=== PATIENT | female | born 1955 | race Caucasian/White ===

== ENCOUNTER 2017-01-28 09:20 | Emergency (ER) | payer MEDICAID ==
[2017-01-28 09:47] VITALS: BP 137/87
[2017-01-28] MEDS ORDERED: Lidocaine 1% MPF* 2 ML VIAL INJ ONE (10:07)
--- NOTE | 2017-01-28 10:59 | UC ---
Skin Complaint HPI - HPI Summary HPI Summary: Patient presents to the with CC of tick to the right inner thigh since . She states she was waiting for the tick to engorge so she could pull it out, but it embedded deeper. She is requesting a removal of the tick at this time. There is a erythematous area around the tick, but does not have an EM appearing rash. She denies previous hx of lyme disease and has never had a tick bite. She denies any symptoms including arthralgia, [place], body aches or any neuro symptoms. Denies fevers, sweats or chills. - History of Current Complaint Chief Complaint: UCSkin Time Seen by Provider: 01/28/17 10:04 Stated Complaint: TICK BITE Hx Obtained From: Patient ?: No Onset/Duration: Sudden Onset Skin Exposure Onset/Duration: Minutes Ago, Days Ago Timing: Constant Onset Severity: Moderate Current Severity: Moderate Pain Intensity: 4 Pain Scale Used: 0-10 Numeric Location: Discrete - right inner thigh Character: Swelling, Redness, Painful Aggravating Factor(s): Nothing Alleviating Factor(s): Nothing Associated Signs & Symptoms: Positive: Tenderness Related History: Possible Reaction to: Insect - Allergy/Home Medications Allergies/Adverse Reactions: Allergies Allergy/AdvReac Type Severity Reaction Status Date / Time No Known Allergies Allergy Verified 01/28/17 09:43 Review of Systems Constitutional: Negative Skin: Rash - right inner thigh Eyes: Negative Cardiovascular: Negative Gastrointestinal: Negative Genitourinary: Negative Motor: Negative Neurovascular: Negative Neurological: Negative Psychological: Negative Is Patient Immunocompromised?: No All Other Systems Reviewed And Are Negative: Yes PMH/Surg Hx/FS Hx/Imm Hx Previously Healthy: Yes Other History Of: Negative For: Anticoagulant Therapy - Surgical History Surgical History: Yes Surgery Procedure, Year, and Place: skin grafts placed on her abdomen from her legs and her back. choley - Family History Known Family History: Positive: Cardiac Disease - Social History Occupation: Employed Part-time Lives: With Family Alcohol Use: None Substance Use Type: None Substance Use Comment - Amount & Last Used: hx of heroin use Smoking Status (MU): Former Smoker - Immunization History Most Recent Tetanus Shot: Unknown Physical Exam Triage Information Reviewed: Yes Appearance: Well-Appearing, Well-Nourished Vital Signs: Initial Vital Signs Temp 98 F 01/28/17 09:43 Pulse 66 01/28/17 09:43 Resp 16 01/28/17 09:43 BP 137/87 01/28/17 09:43 Pulse Ox 98 01/28/17 09:43 Vital Signs Reviewed: Yes Eye Exam: Normal Eyes: Positive: Conjunctiva Clear Neck exam: Normal Neck: Positive: Supple, No Lymphadenopathy Respiratory Exam: Normal Respiratory: Positive: Chest non-tender Cardiovascular Exam: Normal Cardiovascular: Positive: RRR Musculoskeletal Exam: Normal Musculoskeletal: Positive: Strength Intact Neurological Exam: Normal Neurological: Positive: Alert, Muscle Tone Normal Psychological: Positive: Normal Response To Family Skin: Positive: significant lesion(s) - right inner thigh with small 1cm lesion with surrounding erythema Course/Dx - Course Course Of Treatment: patient is requesting tick removal. There is a small 1cm lesion where patient states the tick has burrowed under the skin. Discussed treatment options, and patient would like to attempt at removal. 2ml Lidocaine to the lesion. 24 gauge needle to lift up outer layer of skin. Small black FB' s identified. Tweezers for removal. No bleeding. Bandaid applied. Patient tolerated well. She is given 2 weeks doxycyline d/t large red area around the lesion. Based on ISDA guidelines, will treat for 2 weeks. Instructions given on dispense of medication and patient is to follow up with PCP for any worsening symptoms and to obtain labwork if she chooses. No lab work obtained today d/t early findings. - Differential Diagnoses - Skin Complaint Differential Diagnoses: Tick Born Illness, Other - FB, rash - Diagnoses Provider Diagnoses: Tick Bite Discharge - Discharge Plan Condition: Stable Disposition: HOME Prescriptions: DOXYcycline CAP(*) [DOXYcycline 100MG CAP(*)] 100 mg PO BID #28 cap Patient Education Materials: Lyme Disease (ED), Tick Bite (ED) Referrals: Osiel Hamilton MD [Primary Care Provider] - Additional Instructions: Tick Bite: Approach to prophylaxis : According to the Infectious Diseases Society of [place] (IDSA) guidelines that recommend antibiotic prophylaxis only in patients who meet all of the following criteria: 1. Attached tick identified as an adult or nymphal I. scapularis tick (deer tick). 2. Tick is estimated to have been attached for 36 hours (by degree of engorgement or time of exposure). 3. Prophylaxis is begun within 72 hours of tick removal. Local rate of infection of ticks with B. burgdorferi is 20 percent if attached for over 48 hours (these rates of infection have been shown to occur in parts of [place], parts of the [facility], and parts of [place] and [place]). If you experience a tick and time of attachment is believed to be less than 36 hours, you may remove the tick with head intact and no need for prophylaxis. If over 36 hours, please come into UC. Prophylactic doxycycline is not recommended for ticks attached less than 36 hours. Based on ISDA guidelines, will treat for 2 weeks. Instructions given on dispense of medication and patient is to follow up with PCP for any worsening symptoms and to obtain labwork if she chooses. No lab work obtained today d/t early findings.
== END 2017-01-28 10:27 | disposition home or self-care (01) ==
LOC: UCEAST 09:20
DX: S70.361A Insect bite (nonvenomous), right thigh, initial encounter (principal); R21 Rash and other nonspecific skin eruption; W57.XXXA Bitten or stung by nonvenomous insect and other nonvenomous arthropods, initial encounter; Y93.9 Activity, unspecified; Y92.9 Unspecified place or not applicable; Z90.49 Acquired absence of other specified parts of digestive tract; Z87.891 Personal history of nicotine dependence
CPT/HCPCS: 99202; G0463

== ENCOUNTER 2018-05-06 11:31 | Emergency (ER) | payer OTHER ==
[2018-05-06 11:44] VITALS: BP 111/69
[2018-05-06] MEDS ORDERED: Acetaminophen TAB* 325 MG PO ONE (12:27)
[2018-05-06] MEDS ORDERED: Albuterol/Ipratropium NEB.SOL* Albuterol 2.5 MG/Ipratropium 0.5 MG 3 ML INH ONE (12:38)
--- NOTE | 2018-05-06 12:39 | UC ---
FLU HPI - HPI Summary HPI Summary: cough sob, left ear pain and fever for 2 days---roomate with similar symptoms - History of Current Complaint Chief Complaint: UCGeneralIllness Stated Complaint: CONGESTION FEVER Time Seen by Provider: 05/06/18 12:32 Hx Obtained From: Patient Hx Last Menstrual Period: na ?: No Onset/Duration: Gradual Onset, Lasting Days - 2, Still Present Pain Intensity: 8 Pain Scale Used: 0-10 Numeric Associated Signs & Symptoms: Positive: Fever, Myalgia, Cough, Nasal Congestion, Headache - Allergy/Home Medications Allergies/Adverse Reactions: Allergies Allergy/AdvReac Type Severity Reaction Status Date / Time No Known Allergies Allergy Verified 05/06/18 11:44 Home Medications: Home Medications Lisinopril TAB* [Prinivil TAB 5 MG*] 5 mg PO DAILY 05/06/18 [History Confirmed 05/06/18] PMH/Surg Hx/FS Hx/Imm Hx Previously Healthy: No - 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 choley - Family History Known Family History: Positive: Cardiac Disease - Social History Occupation: Employed Full-time Lives: Dormitory/Roommates Alcohol Use: None Substance Use Type: None Substance Use Comment - Amount & Last Used: hx of heroin use Smoking Status (MU): Former Smoker Length of Time of Smoking/Using Tobacco: 40 years When Did the Patient Quit Smoking/Using Tobacco: 2011 - Immunization History Most Recent Tetanus Shot: Unknown Review of Systems All Other Systems Reviewed And Are Negative: Yes Constitutional: Positive: Fever, Chills, Fatigue Skin: Positive: Negative Eyes: Positive: Negative ENT: Positive: Ear Ache Respiratory: Positive: Shortness Of Breath, Cough Cardiovascular: Positive: Negative Gastrointestinal: Positive: Negative Genitourinary: Positive: Negative Motor: Positive: Negative Neurovascular: Positive: Negative Musculoskeletal: Positive: Negative Neurological: Positive: Negative Psychological: Positive: Negative Is Patient Immunocompromised?: No Physical Exam Triage Information Reviewed: Yes Appearance: Ill-Appearing, Pain Distress, Obese Vital Signs: Initial Vital Signs Temp 101.0 F 05/06/18 11:38 Pulse 102 05/06/18 11:38 Resp 18 05/06/18 11:38 BP 111/69 05/06/18 11:38 Pulse Ox 95 05/06/18 11:38 Vital Signs Reviewed: Yes Eye Exam: Normal Eyes: Positive: Conjunctiva Clear ENT Exam: Normal ENT: Positive: Normal ENT inspection, Hearing grossly normal, TMs normal, Uvula midline. Negative: Pharynx normal, Nasal congestion, Trismus, Hoarse voice, Sinus tenderness Dental Exam: Normal Neck exam: Normal Neck: Positive: Supple, Nontender, No Lymphadenopathy Respiratory Exam: Normal Respiratory: Positive: Chest non-tender, Decreased breath sounds, Wheezing. Negative: Lungs clear, No accessory muscle use Cardiovascular Exam: Normal Cardiovascular: Positive: RRR, No Murmur, Pulses Normal, Brisk Capillary Refill Musculoskeletal Exam: Normal Musculoskeletal: Positive: Strength Intact, ROM Intact, No Edema Neurological Exam: Normal Neurological: Positive: Alert, Muscle Tone Normal Psychological Exam: Normal Psychological: Positive: Normal Response To Family, Age Appropriate Behavior, Consolable Skin Exam: Normal Diagnostics - Radiology No standard instances Radiology Interpretation Completed By: Radiologist - no evidence of pulmory/ cardiac disease Re-Evaluation - Re-Evaluation First Eval Change: Improved - feeling much better after neb and tylenol, increase airmovement--- Flu Course/Dx - Course Course Of Treatment: prednisone, albuterol, zithromax, increase fluids follow with pcp prn, tylenol for pain/fever - Differential Dx/Diagnosis Provider Diagnosis: Bronchitis, acute, with bronchospasm Discharge - Sign-Out/Discharge Documenting (check all that apply): Patient Departure All imaging exams completed and their final reports reviewed: Yes - Discharge Plan Condition: Stable Disposition: HOME Prescriptions: Albuterol HFA INHALER* [Ventolin HFA Inhaler*] 2 puff INH Q4H PRN #1 mdi PRN Reason: cough/wheeze Azithromycin TAB* [Zithromax TAB (Z-YVON) 250 mg #6 tabs] 2 tab PO .TODAY, THEN 1 DAILY #1 yvon predniSONE TAB* [Deltasone 10 MG TAB*] 10 mg PO DAILY #26 tab Patient Education Materials: Acute Bronchitis (ED), Bronchospasm (ED), How to Use a Metered-Dose Inhaler and a Spacer (ED) Referrals: Osiel Hamilton MD [Primary Care Provider] - If Needed - Billing Disposition and Condition Condition: STABLE Disposition: Home
== END 2018-05-06 13:43 | disposition home or self-care (01) ==
LOC: UCEAST 11:31
DX: J20.9 Acute bronchitis, unspecified (principal); I10 Essential (primary) hypertension; Z79.899 Other long term (current) drug therapy; Z87.891 Personal history of nicotine dependence
CPT/HCPCS: 71046; 99212; A9270-GY; G0463